=== PATIENT | male | born 1980 | race Caucasian/White ===

== ENCOUNTER 2018-04-11 09:01 | Emergency (ER) | payer OTHER ==
[2018-04-11 09:16] VITALS: BMI 26.1
[2018-04-11] MEDS ORDERED: Lidocaine Hydrochloride 5 ML INJ ONE (09:19)
[2018-04-11] MEDS ORDERED: Tdap Vaccine 0.5 ml Vial (10-64 yrs) IM ONE ×2 (09:21→09:37)
[2018-04-11] MEDS ORDERED: Bacitracin 500 Units/gm Oint Foilpak UD TOP ONE (09:22)
[2018-04-11] MEDS ORDERED: Lidocaine 1% Inj (20ml) INFIL STA (09:22)
[2018-04-11] MEDS ORDERED: Bacitracin 500 Units/gm Oint Foilpak UD ONE (09:37)
--- NOTE | 2018-04-11 09:39 | C.PDOC ---
History Of Present Illness 38 y/o with no significant PMH presents to the ED for evaluation of left knee laceration. Patient was sleeping and rolled over, falling off the bed. When he awoke, he noticed a laceration on his left knee. Unknown last tetanus. Denies numbness, weakness, paresthesias, lacerations elsewhere, or any other associated complaints. Time Seen by Provider: 04/11/18 09:20 Chief Complaint (Nursing): Abnormal Skin Integrity History Per: Patient History/Exam Limitations: no limitations Past Medical History Reviewed: Historical Data, Nursing Documentation, Vital Signs Vital Signs: Last Vital Signs Temp 98.0 F 04/11/18 09:11 Pulse 102 H 04/11/18 09:11 Resp 20 04/11/18 09:11 BP 127/85 04/11/18 09:11 Pulse Ox 97 04/11/18 09:11 - Medical History PMH: No Chronic Diseases - [facility] Procedures CLOSURE SKIN & SUBCUTANEOUS NEC (10/14/14) TETANUS TOXOID ADMINIST (04/03/13) Family History: States: Unknown Family Hx - Social History Hx Tobacco Use: No Hx Alcohol Use: Yes Hx Substance Use: No - Immunization History Hx Tetanus Toxoid Vaccination: No Hx Influenza Vaccination: No Hx Pneumococcal Vaccination: No Review Of Systems Except As Marked, All Systems Reviewed And Found Negative. Eyes: Negative for: Vision Change Cardiovascular: Negative for: Chest Pain, Palpitations Respiratory: Negative for: Cough, Shortness of Breath Gastrointestinal: Negative for: Nausea, Vomiting, Abdominal Pain Musculoskeletal: Positive for: Leg Pain (left knee). Negative for: Neck Pain, Shoulder Pain, Arm Pain Neurological: Negative for: Weakness, Numbness, Headache, Dizziness, Other (paresthesias) Physical Exam - Physical Exam Appears: Well, Non-toxic, No Acute Distress Skin: Normal Color, Warm, Dry Head: Atraumatic, Normacephalic, No Tenderness Eye(s): bilateral: Normal Inspection, PERRL, EOMI Ear(s): Bilateral: Normal Nose: Normal Oral Mucosa: Moist Throat: Normal Neck: Normal Cardiovascular: Rhythm Regular Respiratory: Normal Breath Sounds Back: Normal Inspection Extremity: Normal ROM, No Tenderness, Capillary Refill (<2s), No Deformity, No Swelling, Other (3.5cm linear laceration with clean edges to lateral anterior knee; no tendon involvement; no active bleeding; no FB visualized) Extremity: Right: Atraumatic, Bilateral: Normal Color And Temperature, Normal ROM Pulses: Left Radial: Normal, Right Radial: Normal, Left Dorsalis Pedis: Normal, Right Dorsalis Pedis: Normal Neurological/Psych: Oriented x3, Normal Speech, Normal Cognition, Normal Cranial Nerves, Normal Motor, Normal Sensation Gait: Steady ED Course And Treatment O2 Sat by Pulse Oximetry: 97 Procedure: Wound Repair - Time Performed Time Performed: 10:30 - Time Out Time Out: Side verified, Site verified, Patient ID confirmed, Sterile procedures obs. - Consent Obtained Consent obtained: Verbal - Performed by Performed by: Mid-level Provider - Indications Indication(s):: Laceration - Location Location:: Left, Anterior, Knee Shape:: Linear Dimensions Length cm: 3.5 Dimensions width cm: 1 Depth:: Muscle - Anesthetic Technique Anesthetic Technique: Local Local/Regional Anesthetic:: Lidocaine 1% (8 cc) - Debris Debris:: None - Irrigated Irrigated with ml of normal saline: 700 - Complexity Complexity:: Intermediate (2 layer) - Wound repair method Sutures:: # (4-0 ), Size (4-0 nylon), Type (nylon), Technique (simple interrupted) - Muscle repiar layer closed with Muscle repair layer closed with:: # (3), Size (5-0), Type (chromic gut), Technique (simple interrupted), Wound well approximated, Abx ointment applied, Dressing applied, Tetanus ordered - Complications Complications: None - Patient tolerated procedure Patient Tolerated Procedure:: Well Medical Decision Making Medical Decision Making: Initial Plan: * Wound irrigation * Left knee XR * Suture repair * Wound dressing * Tdap * Keflex Wound irrigated by me with 700cc normal saline. No FB or debris visualized. XR negative for fracture or FB as read by me. Laceration repaired with 2 layers. 3 deep 5-0 simple interrupted chromic gut sutures placed to achieve decreased tension and good approximation of wound edges. Skin closed with 9 4-0 simple interrupted nylon sutures. Good wound edge approximation and hemostasis achieved. Bacitracin and wound dressing applied by nurse Damon. Pt tolerated procedure well without complication. Pt given prescription for keflex, educated on wound care, and advised to return in 10-14 days for suture removal. Diagnostic testing results and plan of care discussed with patient, and strict instructions given regarding prescriptions, importance of follow up, and signs to return to Emergency Department, to include wound infection, numbness, paresthesias, or any other new/worsening symptoms. Patient verbalizes understanding of discussion. Patient A&Ox3, ambulating with steady gait, stable for discharge home. Disposition - Disposition Referrals: Mihir Urena MD [Staff Provider] - Disposition: HOME/ ROUTINE Disposition Time: 11:00 Condition: IMPROVED Additional Instructions: Return in 10-14 days for suture removal Take antibiotics as prescribed Keep wound dry for 48 hours After 48 hours, wash gently daily with soap and water, pat dry; no soaking Apply bacitracin and dressing daily Keep wound clean, dry, covered Followup with primary doctor within 2 days Return to ER for any new/worsening symptoms Prescriptions: Cephalexin [Keflex] 500 mg PO QID 7 Days #28 capsule Instructions: Laceration Repair, Wound Care (DC) Forms: General Discharge Instructions, [facility] (Bhutanese), Work Excuse - Clinical Impression Clinical Impression: Laceration of knee
--- NOTE | 2018-04-11 10:17 | RAD ---
PROCEDURE: Left Knee Radiographs. HISTORY: fall, anterior knee laceration, r/o FB/fracture COMPARISON: No prior. FINDINGS: BONES: No acute displaced fracture. JOINTS: No dislocation. JOINT EFFUSION: Probable small suprapatellar joint effusion. OTHER FINDINGS: Evidence of soft tissue laceration anterior to the patella. IMPRESSION: Evidence of soft tissue laceration anterior to the patella. Probable small suprapatellar joint effusion.
[2018-04-11 10:56] VITALS: BP 126/84; PULSE 94; RESP 18; TEMP 97.8
[2018-04-11 11:02] VITALS: O2SAT 97
== END 2018-04-11 11:06 | disposition home or self-care (01) ==
LOC: C.ER 09:01
DX: S81.012A Laceration without foreign body, left knee, initial encounter (principal); W06.XXXA Fall from bed, initial encounter; Z23 Encounter for immunization